=== PATIENT | male | born 1995 | race Caucasian/White ===

== ENCOUNTER 2017-04-26 08:39 | Emergency (ER) | payer BC ==
[2017-04-26 08:53] VITALS: BP 114/68
--- NOTE | 2017-04-26 09:32 | UC ---
Throat Pain/Nasal Bowen HPI - HPI Summary HPI Summary: The patient comes in today for: 1. Sore throat: Onset: 1-2 days. Palliative/provocative: Swallowing makes it hurt. Quality: Scratching. Region: "Back of throat." Severity: 10 Time: Constant. Associated symptoms: Rhinitis: None. Cough: None. Fevers: No temperatures taken at home. Mononucleosis: Not diagnosed in the past. * - History of Current Complaint Chief Complaint: UCRespiratory Stated Complaint: ST/IRVIN/WHITE SPOTS IN THROAT Time Seen by Provider: 04/26/17 09:00 Hx Obtained From: Patient - Allergies/Home Medications Allergies/Adverse Reactions: Allergies Allergy/AdvReac Type Severity Reaction Status Date / Time No Known Allergies Allergy Verified 04/26/17 08:53 PMH/Surg Hx/FS Hx/Imm Hx Previously Healthy: Yes Cardiovascular History: Cardiac Disease - He had a "repair of a hole in my heart." and a subsequent hernia repair. - Surgical History Surgical History: Yes Surgery Procedure, Year, and Place: Open heart surgery, 1996, [facility]. hernia - Family History Known Family History: Negative: Cardiac Disease, Hypertension - Social History Occupation: Unemployed Alcohol Use: Weekly Substance Use Type: Marijuana Substance Use Comment - Amount & Last Used: weekly Smoking Status (MU): Current Every Day Smoker Type: Cigarettes Review of Systems Constitutional: Fever Skin: Negative Eyes: Negative ENT: Sore Throat, Ear Ache Respiratory: Negative Cardiovascular: Negative Gastrointestinal: Negative Genitourinary: Negative All Other Systems Reviewed And Are Negative: Yes Physical Exam Triage Information Reviewed: Yes Appearance: Well-Appearing, No Pain Distress, Well-Nourished Vital Signs: Initial Vital Signs Temp 101.7 F 04/26/17 08:49 Pulse 115 04/26/17 08:49 Resp 16 04/26/17 08:49 BP 114/68 04/26/17 08:49 Pulse Ox 100 04/26/17 08:49 Vital Signs Reviewed: Yes Eyes: Positive: Conjunctiva Clear. Negative: Discharge ENT: Positive: Hearing grossly normal. Negative: Pharyngeal erythema, Nasal congestion, Nasal drainage, TM bulging, TM dull, TM red, Tonsillar swelling, Tonsillar exudate Dental: Negative: Gross Decay/Caries @, Dental Fracture @ Neck: Positive: Supple, Nontender, No Lymphadenopathy. Negative: Nuchal Rigidity Respiratory: Positive: Chest non-tender, Lungs clear, No respiratory distress, No accessory muscle use. Negative: Crackles, Wheezing Cardiovascular: Positive: RRR, No Murmur Abdomen Description: Positive: Nontender, No Organomegaly, Soft. Negative: Distended, Guarding Musculoskeletal: Positive: Strength Intact, ROM Intact, No Edema Neurological: Positive: Alert, Muscle Tone Normal Psychological: Positive: Age Appropriate Behavior, Consolable Skin: Negative: rashes, breakdown Diagnostics - Laboratory Diagnostic Studies Completed/Ordered: Strep test: (-) Throat Pain/Nasal Course/Dx - Course Course Of Treatment: Patient was told of the negative strep test and his diagnostic/treatment options. AT this time, he only wants to go with the viscous lidocaine. - Differential Dx/Diagnosis Differential Diagnosis/HQI/PQRI: Laryngitis, Mononucleosis, Tonsillitis Provider Diagnoses: Viral pharyngitis Discharge - Discharge Plan Condition: Stable Disposition: HOME Patient Education Materials: Pharyngitis (ED) Referrals: No Primary Care Phys,NOPCP [Primary Care Provider] - 1 Week (Please see your primary care provider if you are still having a problem after 4-6 days. IF you get worse, please be seen sooner.)
== END 2017-04-26 09:46 | disposition home or self-care (01) ==
LOC: UCCORT 08:39
DX: J20.8 Acute bronchitis due to other specified organisms (principal); F12.90 Cannabis use, unspecified, uncomplicated; F17.210 Nicotine dependence, cigarettes, uncomplicated
CPT/HCPCS: 87651; 99212; G0463

== ENCOUNTER 2019-01-22 16:55 | Emergency (ER) | payer BC ==
[2019-01-22 18:35] VITALS: BP 117/67
--- NOTE | 2019-01-22 19:27 | UC ---
FLU HPI - HPI Summary HPI Summary: Pt c/o sudden onset body aches chills, fever, IRVIN X 1 day. - History of Current Complaint Chief Complaint: UCGeneralIllness Stated Complaint: CHILLS, ACHEY Time Seen by Provider: 01/22/19 19:18 Hx Obtained From: Patient Onset/Duration: Sudden Onset, Lasting Days, Still Present Severity Currently: Moderate Severity Initially: Moderate Pain Intensity: 6 Associated Signs & Symptoms: Positive: Fever - subjective, Myalgia, Headache Related Hx: Possible Flu/Infectious Exposure - Risk Factors Influenza Risk Factors: Negative - Allergy/Home Medications Allergies/Adverse Reactions: Allergies Allergy/AdvReac Type Severity Reaction Status Date / Time No Known Allergies Allergy Verified 01/22/19 18:35 Home Medications: Home Medications D-Methorphan/PE/Acetaminophen [Day Time Cold-Flu Liquid] 355 ml PO DAILY [History Confirmed 01/22/19] PMH/Surg Hx/FS Hx/Imm Hx Previously Healthy: Yes - Surgical History Surgical History: Yes Surgery Procedure, Year, and Place: Open heart surgery, 1996, [facility]. hernia - Family History Known Family History: Negative: Cardiac Disease, Hypertension - Social History Occupation: Employed Full-time Lives: With Family Alcohol Use: Weekly Substance Use Type: Marijuana Substance Use Comment - Amount & Last Used: weekly Smoking Status (MU): Current Every Day Smoker Type: Cigarettes Have You Smoked in the Last Year: Yes Review of Systems All Other Systems Reviewed And Are Negative: Yes Constitutional: Positive: Fever, Chills, Fatigue Skin: Positive: Negative Eyes: Positive: Negative ENT: Positive: Sinus Congestion Respiratory: Positive: Cough Cardiovascular: Positive: Negative Gastrointestinal: Positive: Negative Genitourinary: Positive: Negative Motor: Positive: Negative Neurovascular: Positive: Negative Musculoskeletal: Positive: Myalgia Neurological: Positive: Headache Psychological: Positive: Negative Is Patient Immunocompromised?: No Physical Exam Triage Information Reviewed: Yes Appearance: Ill-Appearing Vital Signs: Initial Vital Signs Temp 99.5 F 01/22/19 18:32 Pulse 108 01/22/19 18:32 Resp 18 01/22/19 18:32 BP 117/67 01/22/19 18:32 Pulse Ox 98 01/22/19 18:32 Vital Signs Reviewed: Yes Eye Exam: Normal ENT: Positive: Nasal congestion Dental Exam: Normal Neck exam: Normal Respiratory Exam: Normal Cardiovascular Exam: Normal Musculoskeletal Exam: Normal Neurological Exam: Normal Psychological Exam: Normal Skin Exam: Normal Flu Course/Dx - Differential Dx/Diagnosis Differential Diagnosis/HQI/PQRI: Influenza, Upper Respiratory Infection Provider Diagnosis: Viral syndrome Discharge - Sign-Out/Discharge Documenting (check all that apply): Patient Departure All imaging exams completed and their final reports reviewed: No Studies - Discharge Plan Condition: Stable Disposition: HOME Patient Education Materials: Viral Syndrome (ED) Referrals: No Primary Care Phys,NOPCP [Primary Care Provider] - Care [facility] [Outside] - Billing Disposition and Condition Condition: STABLE Disposition: Home
[2019-01-22 19:39] LABS: Influenza A Molecular NEGATIVE (Negative); Influenza B Molecular NEGATIVE (Negative)
== END 2019-01-22 19:50 | disposition home or self-care (01) ==
LOC: UCCORT 16:55
DX: B34.9 Viral infection, unspecified (principal); R51 Headache; M79.10 Myalgia, unspecified site; F17.210 Nicotine dependence, cigarettes, uncomplicated
CPT/HCPCS: 99211; G0463